=== PATIENT | male | born 1995 ===

== ENCOUNTER 2018-03-14 19:13 | Emergency (ER) | payer SELFPAY ==
--- NOTE | 2018-03-14 19:32 | EDPHY ---
H & P Time Seen by Provider: 03/14/18 19:16 HPI/ROS: HPI Psychosis, methamphetamine and heroin abuse. 22-year-old male with [place]. He has a history of schizophrenia. He is noncompliant with his medications. He reports he is from [place]. He has a history of heroin abuse and methamphetamine abuse. He states that he was using both of these drugs earlier today. He was found running around on the street naked by police. He states that he feels embarrassed by this. No history of trauma. He denies alcohol. On the way to the emergency department he was given IV Benadryl and Haldol by EMS. My evaluation he is common cooperative and answering questions appropriately. He is not suicidal. He is not homicidal. ROS: Constitutional: No fever, no chills. No weakness. Eyes: No discharge. No changes in vision. ENT: No sore throat. No nasal congestion or rhinorrhea. Respiratory: No cough. No shortness of breath. Cardiac: No chest pain, no palpitations. Gastrointestinal: No abdominal pain, no vomiting, no diarrhea. Genitourinary: No hematuria. No dysuria or increased frequency with urination. Musculoskeletal: No back pain. No neck pain. No myalgias or arthralgias. Skin: No rashes. Neurological: No headache. No focal weakness or altered sensation. Past medical history: Schizophrenia. Polysubstance abuse. Social history: From [place]. Here by himself. As above. Physical Exam: General Appearance: Alert, no distress. Disheveled and dirty in appearance. This patient is responding to questions appropriately and in full sentences. This patient appears generally well-hydrated and well-nourished. Head: Normocephalic atraumatic except for a mid suboccipital contusion which appears to be old and scabbed over. Eyes: Pupils equal and round at 4-2 mm by laterally, no pallor or injection. No lid edema, erythema or injection. ENT, Mouth: Mucous membranes are moist. Poor dentition. The pharyngeal tissues are unremarkable. No edema or swelling. No asymmetry suggestive of abscess. No erythema or exudates. Respiratory: There are no retractions, lungs are clear to auscultation with good air movement bilaterally. Cardiovascular: Regular rate and rhythm. Borderline tachycardic. No murmur appreciated. Gastrointestinal: Abdomen is soft and nontender, no masses, bowel sounds normal. No focal tenderness at McBurney's point. No Loco sign. Neurological: Motor sensory function is grossly intact. Cranial nerves are normal. Gait is normal. Skin: Warm and dry, no rashes. Musculoskeletal: Neck is supple and nontender. Extremities are symmetrical. All joints range without pain or impingement. Psychiatric: No agitation. No depression. Database: EKG: Imaging: Procedures: Emergency department course: 7:50 p.m., the patient was placed on a detainer by myself. Vital signs reviewed. Plan at this time is to allow him to sober and then re-evaluated for disposition. Differential Diagnosis: The differential diagnosis on this patient includes but is not limited to schizophrenia noncompliance with psychiatric medications, methamphetamine induced psychosis, heroin abuse. This represents a partial list of diagnoses considered. These considerations are based on history, physical exam, past history, reassessment and diagnostic testing. (Rossi Santoyo) Constitutional: Initial Vital Signs Temperature (C) 36.7 C 03/14/18 19:15 Heart Rate 104 H 03/14/18 19:15 Respiratory Rate 16 03/14/18 19:15 Blood Pressure 136/73 H 03/14/18 19:15 O2 Sat (%) 91 L 03/14/18 19:15 O2 Delivery Mode Room Air Allergies/Adverse Reactions: No Known Allergies Allergy (Unverified 03/14/18 20:05) Home Medications: Medication Instructions Recorded NK [No Known Home Meds] 03/14/18 Medical Decision Making Other Provider: Care assumed at 8:[address] Santoyo, patient has a history of schizophrenia and methamphetamine use and is on obtain or for being acutely psychotic. Plan for serial exams, mental health evaluation if his psychosis does not resolve after his methamphetamine effect wears off. Signed out to Dr. Fields at 2300 with the above plan. (Luis A Cosby) The patient was ultimately [facility]. His psychosis improved, he was awake and alert and answering questions appropriately. 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 [Clinic] - As per Instructions [facility],. [Clinic] - As per Instructions
[2018-03-14] MEDS ORDERED: CHLORDIAZEPOXIDE 25MG PREPK#6 BTL TAKEHOME ONE (23:35)
[2018-03-15 00:08] VITALS: BP 121/71
== END 2018-03-15 00:06 | disposition home or self-care (01) ==
DX: F15.959 Other stimulant use, unspecified with stimulant-induced psychotic disorder, unspecified (principal); F20.9 Schizophrenia, unspecified